=== PATIENT | female | born 1955 | race Caucasian/White ===

== ENCOUNTER 2017-04-02 23:24 | Emergency (ER) | payer OTHER ==
[2017-04-02] MEDS ORDERED: Ketorolac 60 MG/2 ML SDV IM ONE (23:39)
[2017-04-02] MEDS ORDERED: traMADol 50 MG Tab PO ONE (23:41)
--- NOTE | 2017-04-02 23:44 | EDM.PDOC ---
ED HPI GENERAL MEDICAL PROBLEM - General Chief Complaint: Lower Extremity Injury/Pain Stated Complaint: ANKLE PAIN Time Seen by Provider: 04/02/17 23:33 - History of Present Illness INITIAL COMMENTS - FREE TEXT/NARRATIVE: HISTORY AND PHYSICAL: History of present illness: The patient is a [id number] female with a known history of arthritis with a hip and knee replacement in the past who presents with episodic left ankle pain , several episodes per year for the last few years, with intense left ankle pain and swelling tonight. The patient says she has not had pain on and off for the last one week and in fact was doing normal activities all week including today. She said she was sitting at home and she suddenly started feeling and intense pain in her left ankle joint. She had no neurosensory changes in her foot and no proximal leg knee or hip pain. The patient didn't notice any redness or bruising and denies any trauma to the area. She says the pain is localized at the ankle not in the heel of the foot the toes or proximally. She did not take anything for the pain and she arrives via EMS. The patient has no history of gout Review of systems: As per history of present illness and below otherwise all systems reviewed and negative. Past medical history: As per history of present illness and as reviewed below otherwise noncontributory. Surgical history: As per history of present illness and as reviewed below otherwise noncontributory. Social history: No reported history of drug or alcohol abuse. Family history: As per history of present illness and as reviewed below otherwise noncontributory. Physical exam: Gen.: Well-developed well-nourished female who is nontoxic and vital signs were noted by me HEENT: Atraumatic, normocephalic, negative for conjunctival pallor or scleral icterus, mucous membranes moist, throat clear, neck supple, nontender, trachea midline. Lungs: Clear to auscultation, breath sounds equal bilaterally, chest nontender. Heart: S1S2, regular rate and rhythm no overt murmursABS Pelvis: Stable nontender. Genitourinary: Deferred. Rectal: Deferred. Extremities: Atraumatic with full range of motion of all extremities with the exception of the left ankle where there is discrete tenderness with palpation and arthritic changes and some soft tissue swelling. There is no erythema ecchymosis or warmth and no joint fluid at the ankle. She has no distal swelling of the foot and no tenderness in the heel or the remainder of the foot or toes. Neurovascular is intact. The proximal calf leg knee hip and thigh are nontender without defects or deformities. The legs are, negative for cords or calf pain. Neurovascular unremarkable. Neuro: Awake, alert, oriented. Cranial nerves II through XII unremarkable. Cerebellum unremarkable. Motor and sensory unremarkable throughout. Exam nonfocal. Diagnostics: CBC CRP uric acid ankle x-ray Therapeutics: Shayne Discussed all testing results with the patient and she tells me that she does have a walker at home that she can use. She also would like to use over-the- counter Aleve as an anti-inflammatory. I will give her a brief burst of prednisone and some tramadol and her provider at [facility] is Dr. Marrero which I recommended that she call and see sometime this week. I recommend ice and elevation and no weightbearing for the next few days. Impression: Left ankle pain r/o inflammatory arthritis Definitive disposition and diagnosis as appropriate pending reevaluation and review of above. left foot/ankle Pain Score (Numeric/FACES): 9 - Related Data Allergies Allergy/AdvReac Type Severity Reaction Status Date / Time aspirin [From Fiorinal] Allergy Dizziness Verified 04/02/17 23:30 butalbital [From Fiorinal] Allergy Dizziness Verified 04/02/17 23:30 caffeine [From Fiorinal] Allergy Dizziness Verified 04/02/17 23:30 codeine Allergy Confusion Verified 04/02/17 23:30 Sulfa (Sulfonamide Allergy Rash Verified 04/02/17 23:30 Antibiotics) Home Meds: Home Meds . [No Known Home Meds] 04/02/17 [History] Review of Systems - Review of Systems Review Of Systems: ROS reveals no pertinent complaints other than HPI. ED EXAM, GENERAL - Physical Exam Exam: See Below (See dictation) Course - Vital Signs Last Recorded V/S: Last Vital Signs Temp 37.2 C 04/02/17 23:30 Pulse 84 04/02/17 23:30 Resp 18 04/02/17 23:30 BP 191/89 H 04/02/17 23:30 Pulse Ox 97 04/02/17 23:30 - Orders/Labs/Meds Orders: Active Orders 24 hr Category Date Time Status Ankle Min 3V Lt [CR] Stat Exams 04/02/17 23:39 Taken Labs: Laboratory Tests 04/02/17 04/02/17 Range/Units 23:50 23:50 WBC 7.77 (4.0-11.0) K/uL RBC 4.80 (4.30-5.90) M/uL Hgb 13.6 (12.0-16.0) g/dL Hct 40.4 (36.0-46.0) % MCV 84.2 (80.0-98.0) fL MCH 28.3 (27.0-32.0) pg MCHC 33.7 (31.0-37.0) g/dL RDW Std Deviation 42.6 (28.0-62.0) fl RDW Coeff of Krissy 14 (11.0-15.0) % Plt Count 338 (150-400) K/uL MPV 10.00 (7.40-12.00) fL Neut % (Auto) 61.9 (48.0-80.0) % Lymph % (Auto) 27.4 (16.0-40.0) % [place] % (Auto) 7.7 (0.0-15.0) % Eos % (Auto) 2.6 (0.0-7.0) % Baso % (Auto) 0.4 (0.0-1.5) % Neut # (Auto) 4.8 (1.4-5.7) K/uL Lymph # (Auto) 2.1 (0.6-2.4) K/uL [place] # (Auto) 0.6 (0.0-0.8) K/uL Eos # (Auto) 0.2 (0.0-0.7) K/uL Baso # (Auto) 0.0 (0.0-0.1) K/uL Nucleated RBC % 0.0 /100WBC Nucleated RBCs # 0 K/uL Uric Acid 6.2 (2.1-6.2) mg/dL C-Reactive Protein 0.16 (0.0-0.5) mg/dL Meds: Medications Discontinued Medications Generic Name Dose Route Start Last Admin Trade Name Freq PRN Reason Stop Dose Admin Ketorolac Tromethamine 60 mg 04/02/17 23:39 04/02/17 23:50 Toradol IM 04/02/17 23:40 60 mg ONETIME ONE Administration Tramadol HCl 50 mg 04/02/17 23:41 04/02/17 23:48 Ultram PO 04/02/17 23:42 50 mg ONETIME ONE Administration Departure - Departure Time of Disposition: :16 Disposition: Home, Self-Care 01 Condition: Good Clinical Impression: Arthritis Left ankle pain Qualifiers: Chronicity: acute Qualified Code(s): M25.572 - Pain in left ankle and joints of left foot - Discharge Information Forms: ED Department Discharge Additional Instructions: The following information is given to patients seen in the emergency department who are being discharged to home. This information is to outline your options for follow-up care. We provide all patients seen in our emergency department with a follow-up referral. The need for follow-up, as well as the timing and circumstances, are variable depending upon the specifics of your emergency department visit. If you don't have a primary care physician on staff, we will provide you with a referral. We always advise you to contact your personal physician following an emergency department visit to inform them of the circumstance of the visit and for follow-up with them and/or the need for any referrals to a consulting specialist. The emergency department will also refer you to a specialist when appropriate. This referral assures that you have the opportunity for followup care with a specialist. All of these measure are taken in an effort to provide you with optimal care, which includes your followup. Under all circumstances we always encourage you to contact your private physician who remains a resource for coordinating your care. When calling for followup care, please make the office aware that this follow-up is from your recent emergency room visit. If for any reason you are refused follow-up, please contact the [facility] emergency department at and ask to speak to the emergency department charge nurse. [address] [place], [place] [id number] Please call Dr. Marrero's clinic and schedule a follow-up this week as we discussed. Ice and elevate and try to use your walker and not weight-bear the next few days. Use medications as prescribed from [facility], prednisone and tramadol, . Please use [id number] Aleve as the bottle describes for inflammation and pain. Return to ER as needed and as discussed - My Orders Last 24 Hours: My Active Orders 04/02/17 23:39 Ankle Min 3V Lt [CR] Stat - Assessment/Plan Last 24 Hours: My Active Orders 04/02/17 23:39 Ankle Min 3V Lt [CR] Stat
--- NOTE | 2017-04-04 18:46 | CR ---
EXAM DATE: 04/02/17 PATIENT'S AGE: 61 Patient: FRANCO GERBER Facility: [place], [place] Site . Site : [id number] Study: XRay Extremity Left ankle [id number] 11:55:02 PM Ordering Physician: Cynthia Jackson Final Report: INDICATION: Ankle Pain TECHNIQUE: Ankle radiograph 3 views left COMPARISON: None FINDINGS: Bones: No acute fractures or aggressive bone lesions are identified. Joints: The ankle mortise joint and the visualized hindfoot joints are unremarkable in appearance. No significant ankle effusion is seen. Soft tissue: Kager`s fat pad and the Achilles` tendon is normal in appearance. No radiopaque foreign bodies are seen. IMPRESSION: 1. No acute osseous injuries or abnormalities are noted. Dictated by: Perfecto Kiser MD @ 04/03/2017 00:15:18 (Electronic Signature) Report Signed by Proxy. LUIS
== END 2017-04-03 01:30 | disposition home or self-care (01) ==
LOC: MW.ED 23:24
DX: M25.572 Pain in left ankle and joints of left foot (principal); M19.90 Unspecified osteoarthritis, unspecified site; Z88.6 Allergy status to analgesic agent; Z88.2 Allergy status to sulfonamides; Z88.5 Allergy status to narcotic agent; Z88.8 Allergy status to other drugs, medicaments and biological substances
CPT/HCPCS: 36415; 73610; 84550; 85025; 86140; 96372; 99284; A9270; J1885